=== PATIENT | female | born 1965 | race Caucasian/White ===

== ENCOUNTER 2025-06-22 18:14 | Emergency (ER) | payer OTHER, SELFPAY ==
--- OUTSIDE RECORDS SUMMARY | 2020-09-14 09:00 | XMS_ITS | Continuity of Care Document ---
Author Organization [facility] ([place], [place]) Address [address] [place] [address] Phone Care Team Providers Care Computer Network Engineer Name Role Phone Josephine Carias DMD Unavailable Unavailable Allergies, Adverse Reactions, Alerts Substance Reaction Status Criticality RAMO Inhibitors Active No Informatio n codeine Unknown Active No Information Medications Medication Instructions Dosage Effective Dates (start - stop) Status Comments metformin 1,000 mg tablet take 1 tablet by oral route 2 times every day with morning and evening meals 1000 MG - Active Lipitor 10 mg tablet take 1 tablet by oral route every day 10 MG - Active amoxicillin 500 mg tablet take 1 tablet by oral route every 6 hours 500 MG - No Longer Active Procedures Procedure Date Oral Hygiene Instruction Resin Composite 2s; Posterior 1 Nutrit Couns For Control Of [place] Dis Aug Limited Oral Eval Intraoral-periapical 1st Film 1 Tigcwdsro-kkdayvzaxq-sosi Additional Aug Extract; Erupted Th/exposted Rt 020 Oral Hygiene Instruction Prophylaxis Adult Oral Hygiene Instruction Panoramic Film Intraoral-periapical 1st Film 0 Dhdbpjlxi-julqqxfxeg-nrvq Additional Aug Klybqxzgl-qyzpaxrzyw-czwo Additional Aug Xaybrbkgb-fntvnrkecf-bkbv Additional Aug Rjgkmxxaz-spgjphwptk-chmg Additional Aug Foqfkiyyb-rgxkaexdqv-agcn Additional Aug Ltchlntme-ocanfmtvpf-jetg Additional Aug Comp Oral Eval New/estab Patient 2019 Advance Directives Directive Yes / No Effective Date File Name No Information Encounters Encounter Description Practice Location Reason(s) For Visit Diagnoses Date Provider Providers Copied on Encounter [facility] ([place], [place]), [address] [place] [address], [id number], tel:[phone] Dental Clinic Encounter for screening for dental disorders Jv Burton. [address] [place] [address], [id number], [place]. tel:[phone] [facility] ([place], [place]), [address] [place] [address], [id number], [place] tel:[phone] Dental Clinic dl (chief complaint)d l (chief complaint) Encounter for screening for dental disorders Rafa Burks. [address] [place] [address], [id number], . tel:[phone] [facility] ([place], [place]), [address] [place] [address], [id number], [place] tel:[phone] Dental Clinic Encounter for screening for dental disorders Jv Burton. [address] [place] [address], [id number], [place]. tel:[phone] [facility] ([place], [place]), [address] [place] [address], [id number], tel:[phone] Dental Clinic Encounter for screening for dental disorder Saul Morin. [address] [place] [address], [id number], [place]. tel:[phone] [facility] ([place], [place]), [address] [place] [address], [id number], [place] tel:[phone] Dental Clinic Encounter for screening for dental disorder Saul Morin. [address] [place] [address], [id number], . tel:[phone] Family History Family Member Type Diagnosis Age At Onset Father Problem (finding) Diabetes mellitus Mother Problem (finding) Leukemia Father Problem (finding) Alive and well Payers Payer name Insurance type Covered democrat ID Johnathon ortiz(s) [place] Medicaid [facility] [id number] Social History Type Description Quantity Date Captured Comments Alcohol Use Details Unknown Caffeine Use Details Unknown Tobacco Use Status Light cigarette smok er (1-9 cigs/day) Smoking Status Light tobacco smoker Sex Female Sexual Orientation Straight or heterosexual Gender Identity Female Vital Signs Date / Time: Height Weight BMI Pulse Rate Blood Pressure Temperature Respiratory Rate Body Surface Area Head Circumference Head Circ. Percentile Wt./Alek. Percentile BMI percentile Pulse Ox Inhaled Ox 2:28 PM 91 /min 105/52 mm[Hg] 98.20 F Chief Complaint And Reason For Visit No Information Reason For Referral Reason For Referral No Information Plan Of Treatment Date Type Action Status Goal Tobacco cessation counseling completed History Of Present Illness Encounter Date Complaint History Of Prese nt Illness dl dl dl Functional Status Date Functional Assessmen t No Information Instructions Date Instruction Additional Infor mation No Information Assessments Type Assessment Date assessment Encounter for screening for dent al disorders Patient Care Teams Name Effective Dates (start - stop) Status Members No Information
[2025-06-22 18:39] VITALS: BP 130/79; PULSE 104; TEMP 36.7; O2SAT 97; BMI 32.6
--- NOTE | 2025-06-22 19:31 | CT_ITS ---
The [address] [address] Patient Name: HAO OLIVERA MRN: [id number] date: 1965 Sex: F Assigned Patient Location: ED.MAIN Current Patient Location: ED.MAIN Accession/Order Number: [id number] Exam Date: 06/22/2025 19:44 Report Date: 06/22/2025 20:37 At the request of: CODI PHELAN MD Procedure: CT hip LT wo con CT lumbar spine without contrast TECHNIQUE: The CT exam was performed using one or more the following dose reduction techniques: Automated exposure control, adjustment of the MA and/or Kv according to patient size, or use of the iterative reconstruction technique. COMPARISON: None HISTORY: Left hip and back pain. 3 days duration. Adequate lumbar lordosis. No scoliosis. No acute displaced fracture. Mild spondylosis with endplate spurring. Multilevel facet degeneration. Malrotation right kidney. Left L5 transitional vertebra. CT/CT lumbar spine wo con IMPRESSION: Mild lumbar degenerative changes CT left hip without contrast routine technique Adequate bony alignment without acute displaced fracture. Marginal spurring. Adequate joint space. Articular collapse. No AVN. Greater trochanter spurring. No soft tissue abnormality. IMPRESSION: Mild degenerative changes. Impression dictated by: Tim Penn M.D. 06/22/2025 8:37 PM Dictation Location: [employer] Electronically authenticated by: [id number] Y Date: 06/22/2025 20:37
--- NOTE | 2025-06-22 19:31 | CT_ITS ---
The [address] [address] Patient Name: HAO OLIVERA MRN: [id number] date: 1965 Sex: F Assigned Patient Location: ED.MAIN Current Patient Location: ED.MAIN Accession/Order Number: [id number] Exam Date: 06/22/2025 19:44 Report Date: 06/22/2025 20:37 At the request of: CODI PHELAN MD Procedure: CT hip LT wo con CT lumbar spine without contrast TECHNIQUE: The CT exam was performed using one or more the following dose reduction techniques: Automated exposure control, adjustment of the MA and/or Kv according to patient size, or use of the iterative reconstruction technique. COMPARISON: None HISTORY: Left hip and back pain. 3 days duration. Adequate lumbar lordosis. No scoliosis. No acute displaced fracture. Mild spondylosis with endplate spurring. Multilevel facet degeneration. Malrotation right kidney. Left L5 transitional vertebra. CT/CT hip LT wo con IMPRESSION: Mild lumbar degenerative changes CT left hip without contrast routine technique Adequate bony alignment without acute displaced fracture. Marginal spurring. Adequate joint space. Articular collapse. No AVN. Greater trochanter spurring. No soft tissue abnormality. IMPRESSION: Mild degenerative changes. Impression dictated by: Tim Penn M.D. 06/22/2025 8:37 PM Dictation Location: [employer] Electronically authenticated by: [id number] Y Date: 06/22/2025 20:37
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
[2025-06-22 19:39] VITALS: BP 102/71; PULSE 97; O2SAT 93
--- OUTSIDE RECORDS SUMMARY | 2025-06-22 19:44 | XMS_ITS | Clinical Summary ---
Author Organization [facility] Address [address] [place] [address], [address] [place] [address] Care Team Providers Care Director Of Assisted Living Name Role Phone Tyson Justice MD Primary Care Provider [phone] Social History Tobacco UseTypesPacks/DayYears UsedDateSmoking Tobacco: Never Assessed CommentsUnknownSex and Gender InformationValueDate RecordedSex Assigned at Not on fileLegal JgfCtcmso55/10/2013 7:46 PM ESTGender IdentityNot on fileSexual OrientationNot on file Plan of Treatment Not on file Care Teams Team MemberRelationshipSpecialtyStart DateEnd Date Tyson Justice MD [address] [place] [address] [place], [place] [facility]04/12/12
--- OUTSIDE RECORDS SUMMARY | 2025-06-22 19:44 | XMS_ITS | Clinical Summary ---
Author Organization [facility] Address [address] [place] [address] Care Team Providers Care Catering Administrative Assistant Name Role Phone Yasmeen Ponce MD Primary Care Provider [phone] Social History Tobacco UseTypesPacks/DayYears UsedDateSmoking Tobacco: Never Assessed CommentsUnknownSex and Gender InformationValueDate RecordedSex Assigned at Not on fileLegal ByuFotzgi22/08/2017 9:49 PM EDTGender LlqktuenNmwfsw33/21/2019 7:59 AM EDTSexual ZrrpqnvekhfPneacbey15/21/2019 7:59 AM EDT Plan of Treatment Health MaintenanceDue DateLast DoneCommentsCT Wamoplystonk1966Colonoscopy 1966Colorectal Cancer Screening/Wxyuzywpbb1966Fecal DNA1966 Fecal occult blood test (FOBT,FIT)1966MMR Vaccines (1 of 1 - Standard series)1967Wellness Visit1969Diabetic Eye Exam1976Diabetic Foot Exam1976Urine (micro)albumin/creatinine ratio - Vnpnheon38/15/1976 eGFR ??? Mxscnmmo07/15/1976Depression Screening/Follow-Up (PHQ-2/9)1978HIV Jjiwbnvwt24/15/1981Hepatitis C Icwhppnql26/15/1984Hepatitis B Vaccines (1 of 3 - 19+ 3-dose series)1985Pneumococcal Vaccine: 50+ Years (1 of 2 - PCV) 1985Tetanus/Diphtheria/Pertussis (1 - Tdap)1985Flexible nxjeuoysbzmeh77/15/2016RSV Vaccines (1 - Risk 50-74 years 1-dose series) 2016Zoster Vaccines (1 of 2)2016A1C502/05/2025, 09/12/2024, 06/13/2024, Additional history existsCOVID-19 Vaccine ( season) 2025Influenza Vaccine (#1)04/03/20252476Oxwaiyqaj26/07/88663109/09/2024HIB VaccinesAged OutNo longer eligible based on patient's age to complete this topic HPV VaccinesAged OutNo longer eligible based on patient's age to complete this topicHepatitis A VaccinesAged OutNo longer eligible based on patient's age to complete this topicIPV VaccinesAged OutNo longer eligible based on patient's age to complete this topicMeningococcal ACWY VaccineAged OutNo longer eligible based on patient's age to complete this topicMeningococcal B VaccineAged OutNo longer eligible based on patient's age to complete this topicRotavirus VaccinesAged Out No longer eligible based on patient's age to complete this topic Insurance * Guarantor: Loulou Lizarraga TypeRelation to PatientDate of BirthPhone Billing GegrjtyLclionKlxd1965 [address] [place] [address] Care Teams Team MemberRelationshipSpecialtyStart DateEnd Yasmeen Ponce MD [address] [place] [address] PCP - GeneralFamily Medicine10/21/18
--- OUTSIDE RECORDS SUMMARY | 2025-06-22 19:44 | XMS_ITS | Clinical Summary ---
Author Organization [facility] Address [address] [place] [address] Care Team Providers Care Grove Worker Name Role Phone Sivakumar Min MD Primary Care Provider [phone] Allergies Active AllergyReactionsCriticalityNoted DateCommentsAce InhibitorsUnknown 07/16/20230975WpjlfqeMqyxjjg26/28/2008 Other Reaction(s): rash, sickness Medications MedicationSigDispense QuantityRefillsLast FilledStart DateEnd DateStatus apixaban (Eliquis) 5 MG tablet Take 5 mg by mouth in the morning and 5 mg in the evening.07/16/2023ctive atorvastatin (Lipitor) 20 MG tablet Take 20 mg by mouth in the morning.07/16/2023ctive metFORMIN XR (Glucophage-XR) 500 MG 24 hr tablet Take 500 mg by mouth in the morning. 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); Onychomycosis; Pain in left toe(s); Pain in right toe(s)04/28/2025amboo flowsheet [facility] [address] [place] [address] Maikol Peterson, DPM FACFAS from Last 3 Months Social History Tobacco UseTypesPacks/DayYears UsedDateSmoking Tobacco: NeverSmokeless Tobacco: Never Tobacco Cessation:Counseling Given: Yes Alcohol UseStandard Drinks/WeekCommentsDefer0 (1 standard drink = 0.6 oz pure alcohol)CommentsUnknownSex and Gender InformationValueDate RecordedSex Assigned at BirthNot on fileLegal TjiYzdxxj19/01/2023 8:34 PM EDTGender Identity Not on fileSexual OrientationNot on file Last Filed Vital Signs Vital SignReadingTime TakenCommentsBlood Jaknvwyb660/8109 10:24 AM EDT Eiclz1760/26/2025 10:24 AM EDTTemperature--Respiratory Rate--Oxygen Saturation-- Inhaled Oxygen Concentration--Vscekt84.7 kg (189 lb)04/28/2025 10:24 AM EDT Rsnvxw873.6 cm (5' 4 )04/28/2025 10:24 AM EDTBody Mass Index32.44004/28/2025 10:24 AM EDT Plan of Treatment DateTypeDepartmentCare Team (Latest Contact Info)Wphhzgijoxy47/05/2025 10:50 AM ESTProcedure Visit [facility] [address] [place] [address] Maikol Peterson, DPM FACFAS [address] [place] [address] Insurance Care Teams Team MemberRelationshipSpecialtyStart DateEnd Date Sivakumar Min MD [address] [place] [address] [facility] Uobveibr09/20/23
--- OUTSIDE RECORDS SUMMARY | 2025-06-22 19:44 | XMS_ITS | Clinical Summary ---
Author Organization [facility] Address [address] [place] [id number] Care Team Providers Care Store Operations Manager Name Role Phone Sivakumar Min DO Primary Care Provider Viola Griffin PA-C Unavailable [phone] Allergies Active AllergyReactionsCriticalityNoted DateCommentsAce InhibitorsCoughMedium 07/16/20236293TdipztzApbybFnhqdb29/28/2008 Medications MedicationSigDispense QuantityRefillsLast FilledStart DateEnd DateStatus OXYGEN, HOME THERAPY, 2 L/min by Nasal Cannula route daily at bedtime. 2L/min Uses LINCAREActive CPAP/BIPAP/OTHER Indications:ERLINDA (obstructive sleep apnea)Type .CPAPSettings into a note to see current settings/supplies/DME information. 1 Each /ctive Additional Information Patient not taking.Reason: Discontinued by Patient, Reported on 09/26/2024 CPAP/BIPAP/OTHER Indications:ERLINDA (obstructive sleep apnea)Type .CPAPSettings into a note to see current settings/supplies/DME information. 1 Each /ctive Additional Information Patient not taking.Reason: Discontinued by Patient, Reported on 09/26/2024 CPAP/BIPAP/OTHER Type .CPAPSettings into a note to see current settings/supplies/DME information. 1 Each /ctive Additional Information Patient not taking.Reason: Discontinued by Patient, Reported on 09/26/2024 Lancets Indications:Uncontrolled type 2 diabetes mellitus with hyperglycemia (HCC), Microalbuminuria due to type 2 diabetes mellitus (HCC),Type 2 diabetes mellitus with diabetic microalbuminuria, without long-term current use of insulin ([facility]) Test Two times a day. Insulin Dep? No E11.9 DM 2 200 Each ctive blood sugar diagnostic (BLOOD GLUCOSE TEST) test strip Indications:Uncontrolled type 2 diabetes mellitus with hyperglycemia (HCC), Microalbuminuria due to type 2 diabetes mellitus (HCC),Type 2 diabetes mellitus with diabetic microalbuminuria, without long-term current use of insulin ([facility]) Test 2 times daily, Insulin Dep? No E11.9 DM 2 200 Strip ctive budesonide-formoterol (SYMBICORT) 80-4.5 mcg/actuation inhaler Indications:Centrilobular emphysema ([facility])Inhale 2 Puffs as instructed two times a day. 10.2 g ctive atorvastatin (LIPITOR) 40 mg tablet Take 1 tablet by mouth once daily. 90 tablet tive losartan (COZAAR) 25 mg tablet Take 1 tablet by mouth once daily. 90 tablet ctive SITagliptin phosphate (JANUVIA) 50 mg tablet Take 1 tablet by mouth once daily. 90 tablet 6Active empagliflozin (JARDIANCE) 10 mg tablet Take 1 tablet by mouth daily with breakfast. 90 tablet ctive metFORMIN ER (GLUCOPHAGE XR) 750 mg 24 hr tablet Take 2 tablets by mouth daily with breakfast. 180 tablet 5Active albuterol HFA (PROVENTIL HFA, VENTOLIN HFA) 90 mcg/actuation inhaler Inhale 2 puffs as instructed every 4 hours as needed for wheezing/shortness of breath. 1 each 5Active metoprolol succinate ER (TOPROL XL) 25 mg 24 hr tablet Indications:Essential hypertensionTake 2 tablets by mouth daily at bedtime. 180 tablet //6Active nystatin (MYCOSTATIN) powder Apply 1 application to affected area four times daily. 60 g 1105Active omeprazole (PRILOSEC) 40 mg capsule Take 1 capsule by mouth every afternoon. 90 capsule 5Active Active Problems ProblemNoted DateDiagnosed DateMicroalbuminuria due to type 2 diabetes mellitus 12/15/2024oronary artery calcification seen on CAT scan09/15/2024Pulmonary uovqxclwg38/13/2025Lung ioudurk2509/15/2024OSA (obstructive sleep apnea)12/16/2023 Abnormal cardiovascular stress test10/12/2023Obesity, Class I, BMI 30-34.9 08/18/2023Mixed /16/2024Type 2 gdpvunhc59/16/2024aroxysmal atrial oztnlgbpvkei73/16/2024SOB (shortness of breath)08/18/2023urrent smoker 08/18/2023Nocturnal zaqrouwyn11/16/2024Throat pain09/30/2007Chronic tonsillitis 09/30/2007Esophageal nnnkvt8509/30/2007Unspecified sinusitis (chronic)09/30/2007 Resolved Problems ProblemNoted DateDiagnosed DateResolved DatePersistent atrial fibrillation Encounters DateTypeDepartmentCare QcnpUzjlfgcpuka21/05/2025 Patient Msg Cardiology [address] [place] [address] Provider, [facility] Urgent Appointment Dfdtswazmmjw42/04/9480Ayalxk93/28/2025 Patient Msg Internal Medicine Jasbir [address] [place], [place] [id number] Sivakumar Min, DO Activate Your Health Journey: A Supportive Approach to Weight Management 03/23/2025Travelfrom Last 3 Months Family History Medical HistoryRelationCommentsDiabetesBrotherDiabetesFatherProstate Cancer FatherLeukemiaMaternal AuntHeartMaternal GrandmotherLung CancerMaternal GrandmotherSkin CancerMaternal GrandmotherLung CancerMaternal Uncle 1throat cancerMaternal Uncle 2LeukemiaMotherlukemniaSkin CancerMotherRelationStatus CommentsBrotherFatherMaternal AuntDeceasedMaternal GrandmotherMaternal Uncle 1 DeceasedMaternal Uncle 2AliveMotherDeceased Social History Tobacco UseTypesPacks/DayYears UsedDateSmoking Tobacco: Every QhkJyncebrvtd801.9 Started: 1984Smokeless Tobacco: Never Tobacco Cessation:Ready to Q uit: Not Asked; Counseling Given: Not Answered Comments:Started smoking at the age of 20. Average 1 ppd. Currently smoke 3- 6 cigarettes daily (updated 09/17/23) Alcohol UseStandard Drinks/WeekCommentsNo0 (1 standard drink = 0.6 oz pure alcohol)[facility] UtilitiesAnswerDate RecordedIn the past 12 months has the electric, gas, oil, or water company threatened to shut off services in your home?No 12/15/2024UDIT-CAnswerDate RecordedQ1: How often do you have a drink containing alcohol?Never12/15/2024Q2: How many drinks containing alcohol do you have on a typical day when you are drinking?Patient does not drink12/15/2024Q3: How often do you have six or more drinks on one occasion?Never12/15/2024Overall Financial Resource Strain (CARDIA)AnswerDate RecordedHow hard is it for you to pay for the very basics like food, housing, medical care, and heating?Patient declined 12/15/2024PHQ-2AnswerDate RecordedPHQ-2 lpqjt290Hunger Vital SignAnswer Date RecordedWithin the past 12 months, you worried that your food would run out before you got the money to buymore.Never true12/15/2024Within the past 12 months, the food you bought just didn't last and you didn't have money to get more.Never true12/15/2024PRAPARE - TransportationAnswerDate RecordedIn the past 12 months, has lack of transportation kept you from medical appointments or from getting medications?No12/15/2024In the past 12 months, has lack of transportation kept you from meetings, work, or from getting things needed for daily living?No12/15/2024rea Deprivation IndexAnswerDate RecordedNational Score (1-100), lower number is lower ulep595110/27/2023State Score (1-10), lower number is lower diex458ata from: https://www.neighborhoodatlas.medicine.[facility].edu/. Last address used for [address]/27/2023CommentsNoSex and Gender Information ValueDate RecordedSex Assigned at BirthNot on fileLegal WbmIowipd50/02/2012 8:12 AM ESTGender IdentityNot on fileSexual OrientationNot on file Last Filed Vital Signs Vital SignReadingTime TakenCommentsBlood Cxjeimzr986/8801/26/2025 11:32 AM EDT Gemis40571/26/2025 11:17 AM BESTtkiztbmtkg95.8 ??C (98.3 ??F)11/02/2024 3:55 PM EDTRespiratory Ozxv8647 10:55 AM ESTOxygen Hsktcifvfh23%01/26/2025 11:17 AM EDTInhaled Oxygen Concentration--Dhtyfv68 kg (180 lb 12.4 oz)01/26/2025 11:17 AM ZXAJiisax213.5 cm (5' 2 )01/26/2025 11:17 AM EDTBody Mass Index33.06 01/26/2025 11:17 AM EDT Plan of Treatment Health MaintenanceDue DateLast DoneCommentsDilated Retinal Exam1976Anxiety Lbrpxfpoy59/15/1984Depression Uctkrhdka76/15/1984HIV Magpimofw45/15/1984 Hepatitis C Nrpgnrgpu33/15/1984DTaP,Tdap,Td Vaccine (1 - Tdap)1985 Hepatitis B Vaccine (1 of 3 - 19+ 3-dose series)1985Pneumococcal Vaccine: 50+ (1 of 2 - PCV)1985CT Wtveetzkikuh36/15/2011Cologuard (FIT-DNA) 2011Fecal Occult Blood06/17/20113195Lvxtzzvwioqnr58/15/2011Shingrix Vaccine (1 of 2)06/17/20166283Zeqwmrnovok90/12/202309/2Colorectal Cancer Screening 04/14/20237542DgM6E56/07/2025, 09/12/2024, 06/13/2024, Additional history existsCovid-19 Vaccine ( - 2024- season)2025Influenza Vaccine (#1) 2025Urine Albumin:Creatinine Ratio/06/2024, 07/18/2023 Mammogram Ctqfgiccx94/01/2025LDL Slzqogqwzqv26/12/202605/07/2025, 09/12/2024, 06/13/2024, Additional history existsLung Cancer Mvfoeofti39/22/2026 12/22/2024, 09/15/2024, 4Diabetic Foot Exam, 4Annual PCP Team Chronic Disease Visit5Cervical Cancer ScreeningDiscontinued Procedures Procedure NamePriorityDate/TimeAssociated DiagnosisCommentsPT ED PATIENT IGMNNUCQABI05/06/2025 CT LUNG FOLLOWUP WO KFNSDItzoerp40/22/2025 2:13 PM EDT Lung nodules HEMOGLOBIN E0SPezyfzs78/12/2025 12:03 PM EDT Uncontrolled type 2 diabetes mellitus with hyperglycemia (HCC) LIPID PANEL, XRNXJDIZqmjdkq54/12/2025 12:03 PM EDT Uncontrolled type 2 diabetes mellitus with hyperglycemia (HCC) EMILY SCREENING W UUPAItssloy17/07/2025 4:09 PM EST Encounter for screening mammogram for breast cancer ALBUMIN/CREATININE RATIO, OBSQRVstcndq98/11/2024 12:28 PM EST Uncontrolled type 2 diabetes mellitus with hyperglycemia (HCC) from Last 3 Months or Most Recently Relevant to Health Maintenance Results * PT ED PATIENT INFORMATION (05/08/2025)Specimen (Source)Anatomical Location / LateralityCollection Method / VolumeCollection TimeReceived Time05/08/2025 Narrative [facility] - 06/08/2025 Provider PACK your patient SHEREE OLIVERA has not started their Addison program, time has . Addison program: PATIENT SAFETY INSTRUCTIONS FOR HEALTHCARE SETTINGS Authorizing ProviderResult TypeResult StatusNicole Pack CASING IN LINE FEEDER.CNPEMMIFinal Result Performing OrganizationAddressCity/State/ZIP CodePhone Number [facility] * CT LUNG FOLLOWUP WO IVCON (12/22/2024 2:13 PM EDT)Anatomical RegionLaterality ModalityLungComputed TomographySpecimen (Source)Anatomical Location / LateralityCollection Method / VolumeCollection TimeReceived Time12/22/2024 2:13 PM EDT Impressions 12/23/2024 10:32 AM EDT IMPRESSION: LungRADS category: 2 LungRADS modifier: None LungRADS 0 reason: n/a Recommendations: Continue annual screening with LDCT in 12 months. Other actionable findings: Reference: [employer]. Lung CT Screening Reporting and Data System (Lung-RADS). Available at: http://www.acr.org/Quality-Safety/Resources/LungRADS Transcribe Date/Time: Dec 23 2024 ??9:20A Dictated by: GLENN OLVERA MD This examination was interpreted and the report reviewed and electronically signed by: GLENN OLVERA MD on Dec 23 2024 10:30AM ??EST Thank you for allowing us to participate in the care of your patient. Should there be any questions regarding this interpretation, please call [phone]. If you are unable to reach us at the number above, please feel free to contact [facility] at [phone]. Narrative 12/23/2024 10:32 AM EDT * * *Final Report* * * DATE OF EXAM: Dec 22 2024 ??2:13PM ?? L[facility] ?? 0561 ??- ??CT LUNG FOLLOWUP WO IVCON ??/ PROCEDURE REASON: Lung nodules ? * * * * Physician Interpretation * * * * RESULT: EXAMINATION: ??CT LUNG FOLLOWUP WO IVCON CLINICAL HISTORY: ??Lung nodule Technique: ??Spiral CT acquisition of the chest from the thoracic inlet to the upper abdomen without contrast. MQ: ??CTLCS_6 Followup LDCT Patient characteristics: * ??Ulml-dn-Epzvm: ??1965; ??Age at exam: 59 years * ??Gender: ??Female * ??Lung Disease: ??Asymptomatic (no signs or symptoms of lung disease) * ??Number of Pack Years: ??29 * ??Current smoker (=0) or Number of Years since Quit: ??0 * ??Ordering provider and NPI: ??ANIKET CAMPOS [id number] * ??Interpreting radiologist and NPI: ??Tommy [id number] Exam acquisition parameters: * ??Exam Date: ??12/22/2024 2:13 PM * [facility] * ?? * ??CT System Back Shoe Cutter: ??Siemens * ??CT System Model: ?? Definition * ??Tube Current-Time (mA-sec): ??40 * ??Peak Voltage (kV): ?? 120V * ??Scan Time (sec): ??6.4 * ??Scan Volume (z-length, cm): 34.10 * ??Pitch: ??1.0 * ??Slice Thickness (mm): 1.5 * ??CT Dose-Length Product: ??110 mGy*cm * ??CT Dose Index: 3.06mGy * ??CT Dose Reduction Method: ??Automated exposure control (AEC) COMPARISON: ??CT chest dated 09/15/2024 RESULT: Are nodules present? Yes, 6 or more nodules If No, go to IMPRESSION. If yes, proceed with characterization of the FIVE largest nodules. Nodule 1: ??This Solid nodule is located in the Right Upper Lobe on slice number 91 with an average diameter of 5.8 mm (7.7 mm x 3.9 mm). ??Stable Nodule 2: ??This Solid nodule is located in the Right Middle Lobe on slice number 212 with an average diameter of 3.5 mm (5.0 mm x 1.9 mm). Nodule 3: ??This Solid nodule is located in the Right Lower Lobe on slice number 182 with an average diameter of 3.2 mm (3.9 mm x 2.5 mm). Nodule 4: ??This Solid nodule is located in the Right Lower Lobe on slice number 148 with an average diameter of 2.8 mm (3.7 mm x 1.8 mm). Nodule 5: ?? This Solid nodule is located in the Right Upper Lobe on slice number 108 with an average diameter of 2.8 mm (3.2 mm x 2.3 mm). Please ENSURE NODULE NUMBER is the same as in the prior screening evaluation. Other lung nodule comments: ??The right upper lobe nodule measuring 6.3 mm in average diameter which was new on the prior exam has resolved and likely represented focal atelectasis. Other findings: ??The central airways are patent without evidence of endobronchial lesion. ??No acute focal lung consolidation is seen. ??There is no pleural effusion or pneumothorax. ??No enlarged supraclavicular, axillary, mediastinal or hilar lymph nodes are seen. ??The aorta and main pulmonary artery are normal in course and caliber. ??The heart size is normal. ??Mild atherosclerotic calcifications are seen in the aorta. ?? There is no pericardial effusion. ??The thyroid gland is unremarkable. ?? The esophagus is nondilated. ??The soft tissues of the chest wall are unremarkable. ??Mild atherosclerotic calcifications are seen in the abdominal aorta. ??No destructive bone lesion is seen. ??Degenerative changes seen in the thoracic spine. Emphysema: Trivial (<5%), Centrilobular, Upper lobe Coronary Artery Calcifications: Circumflex ??mild; Left Anterior Descending mild; Right Coronary mild Localizer images: No additional findings. Procedure Note Provider, [facility] [place] - 12/23/2024 * * *Final Report* * * DATE OF EXAM: Dec 22 2024 2:13PM [facility] 0561 - CT LUNG FOLLOWUP WO IVCON / PROCEDURE REASON: Lung nodules * * * * Physician Interpretation * * * * RESULT: EXAMINATION: CT LUNG FOLLOWUP WO IVCON CLINICAL HISTORY: Lung nodule Technique: Spiral CT acquisition of the chest from the thoracic inlet to the upper abdomen without contrast. MQ: CTLCS_6 Followup LDCT Patient characteristics: * Cfyn-fx-Neokg: 1965; Age at exam: 59 years * Gender: Female * Lung Disease: Asymptomatic (no signs or symptoms of lung disease) * Number of Pack Years: 29 * Current smoker (=0) or Number of Years since Quit: 0 * Ordering provider and NPI: ANIKET CAMPOS [id number] * Interpreting radiologist and NPI: Tommy [id number] Exam acquisition parameters: * Exam Date: 12/22/2024 2:13 PM * [facility] * * CT System Back Shoe Cutter: Siemens * CT System Model: Definition * Tube Current-Time (mA-sec): 40 * Peak Voltage (kV): 120V * Scan Time (sec): 6.4 * Scan Volume (z-length, cm): 34.10 * Pitch: 1.0 * Slice Thickness (mm): 1.5 * CT Dose-Length Product: 110 mGy*cm * CT Dose Index: 3.06mGy * CT Dose Reduction Method: Automated exposure control (AEC) COMPARISON: CT chest dated 09/15/2024 RESULT: Are nodules present? Yes, 6 or more nodules If No, go to IMPRESSION. If yes, proceed with characterization of the FIVE largest nodules. Nodule 1: This Solid nodule is located in the Right Upper Lobe on slice number 91 with an average diameter of 5.8 mm (7.7 mm x 3.9 mm). Stable Nodule 2: This Solid nodule is located in the Right Middle Lobe on slice number 212 with an average diameter of 3.5 mm (5.0 mm x 1.9 mm). Nodule 3: This Solid nodule is located in the Right Lower Lobe on slice number 182 with an average diameter of 3.2 mm (3.9 mm x 2.5 mm). Nodule 4: This Solid nodule is located in the Right Lower Lobe on slice number 148 with an average diameter of 2.8 mm (3.7 mm x 1.8 mm). Nodule 5: This Solid nodule is located in the Right Upper Lobe on slice number 108 with an average diameter of 2.8 mm (3.2 mm x 2.3 mm). Please ENSURE NODULE NUMBER is the same as in the prior screening evaluation. Other lung nodule comments: The right upper lobe nodule measuring 6.3 mm in average diameter which was new on the prior exam has resolved and likely represented focal atelectasis. Other findings: The central airways are patent without evidence of endobronchial lesion. No acute focal lung consolidation is seen. There is no pleural effusion or pneumothorax. No enlarged supraclavicular, axillary, mediastinal or hilar lymph nodes are seen. The aorta and main pulmonary artery are normal in course and caliber. The heart size is normal. Mild atherosclerotic calcifications are seen in the aorta. There is no pericardial effusion. The thyroid gland is unremarkable. The esophagus is nondilated. The soft tissues of the chest wall are unremarkable. Mild atherosclerotic calcifications are seen in the abdominal aorta. No destructive bone lesion is seen. Degenerative changes seen in the thoracic spine. Emphysema: Trivial (<5%), Centrilobular, Upper lobe Coronary Artery Calcifications: Circumflex mild; Left Anterior Descending mild; Right Coronary mild Localizer images: No additional findings. IMPRESSION IMPRESSION: LungRADS category: 2 LungRADS modifier: None LungRADS 0 reason: n/a Recommendations: Continue annual screening with LDCT in 12 months. Other actionable findings: Reference: [employer]. Lung CT Screening Reporting and Data System (Lung-RADS). Available at: http://www.acr.org/Quality-Safety/Resources/LungRADS Transcribe Date/Time: Dec 23 2024 9:20A Dictated by: GLENN OLVERA MD This examination was interpreted and the report reviewed and electronically signed by: GLENN OLVERA MD on Dec 23 2024 10:30AM EST Thank you for allowing us to participate in the care of your patient. Should there be any questions regarding this interpretation, please call [phone]. If you are unable to reach us at the number above, please feel free to contact [facility] at [phone]. Authorizing ProviderResult TypeResult StatusKristina LalleyCT-PAMAFinal Result * (ABNORMAL) LIPID PANEL BASIC (12/12/2024 12:03 PM EDT)ComponentValueRef Range Test MethodAnalysis TimePerformed AtPathologist SignatureCholesterol, Bgxvz268 (H)<200 mg/dL12/12/2024 12:34 PM EDTAMHERST [facility] LABComment: <200 mg/dL, Desirable 200-239 mg/dL, Borderline high >239 mg/dL, High Nqxfajfqkghi795(H)<150 mg/dL12/12/2024 12:34 PM [facility] LABComment: <150 mg/dL, Normal 150-199 mg/dL, Borderline high 200-499 mg/dL, High >499 mg/dL, Very high HDL Hxfyzkqcdxg76>39 mg/dL12/12/2024 12:34 PM [facility] LABComment: 40-59 mg/dL, Acceptable >59 mg/dL, High: Negative risk factor for coronary heart disease <40 mg/dL, Low: Positive risk factor for coronary heart disease LDL Cholesterol, Gpetegefct755(H)<100 mg/dL12/12/2024 12:34 PM [facility] LABComment: <100 mg/dL, Optimal 100-129 mg/dL, Near optimal/above optimal 130-159 mg/dL, Borderline high 160-189 mg/dL, High >189 mg/dL, Very high Secondary prevention optimal LDL Cholesterol levels are recommended to be <70 mg/dL LDL cholesterol is calculated using the Mckeon-NIH equation. Non HDL Mguumiuioiq727(H)<130 mg/dL12/12/2024 12:34 PM [facility] Comment: <130 mg/dL, Optimal 130-159 mg/dL, Near optimal/above optimal 160-189 mg/dL, Borderline high 190-219 mg/dL, High >219 mg/dL, Very high Secondary prevention optimal non HDL Cholesterol levels are recommended to be <100 mg/dL VLDL Xnecepljazo98(H)<30 mg/dL12/12/2024 12:34 PM [facility] LABTC:HDL Ratio 5.85(H)<5.10012/12/2024 12:34 PM [facility] LABLDL:HDL Ratio4.15(H)<2.54 12/12/2024 12:34 PM [facility] LABComment: Reference: 1. National Cholesterol Education Program ATP III Guideline At-A-Glance Quick Desk Reference: National Heart, Lung, and Blood [place]. National Institutes of Health. 2001: NIH Publication No. 01-3305. 2. An International Atherosclerosis Society position paper: global recommendations for the management of dyslipidemia: executive summary, Atherosclerosis. 2014: 232(2):410-413. Fasting BoadIRezl42/12/2025 12:34 PM [facility] LABSpecimen (Source) Anatomical Location / LateralityCollection Method / VolumeCollection Time Received TimeBloodBLOOD SPECIMEN / UnknownVenipuncture / Wprblof4712/12/2024 12:03 PM EDT12/12/2024 12:03 PM EDT Narrative Authorizing ProviderResult TypeResult StatusSivakumar Min DOLABORATORY Final ResultPerforming OrganizationAddressCity/State/ZIP CodePhone Number [facility] [address] [place] [address], * (ABNORMAL) HEMOGLOBIN A1C (12/12/2024 12:03 PM EDT)ComponentValueRef RangeTest MethodAnalysis TimePerformed AtPathologist SignatureHemoglobin A1C9.1(H)4.3 - 5.6 %12/12/2024 12:19 PM [facility] LABComment:[place] [employer] Association guidelines indicate that patients with HgbA1c in the range 5.7- 6.4% are at increased risk for development of diabetes, and intervention by lifestyle modification may be beneficial. HgbA1c greater or equal to 6.5% is considered diagnostic of diabetes.Estimated Average Akesdud478hb/dL12/12/2024 12:19 PM [facility] LABComment:eAG: (Estimated average glucose) is a calculated value from HgbA1c and is mill representative of the average blood glucose level in the last 2-3 month period.Specimen (Source)Anatomical Location / LateralityCollection Method / VolumeCollection TimeReceived Time BloodBLOOD SPECIMEN / UnknownVenipuncture / Crbikzd5412/12/2024 12:03 PM EDT 12/12/2024 12:03 PM EDT Narrative Authorizing ProviderResult TypeResult StatusSivakumar Min DOLABORATORY Final ResultPerforming OrganizationAddressCity/State/ZIP CodePhone Number [facility] [address] [place] [address], * EMILY SCREENING W JOHN (09/09/2024 4:09 PM EST)Anatomical RegionLaterality ModalityBreastOtherSpecimen (Source)Anatomical Location / LateralityCollection Method / VolumeCollection TimeReceived Time09/09/2024 4:09 PM EST Impressions 09/11/2024 1:57 PM EST IMPRESSION: There is no mammographic evidence of malignancy in either breast. Routine screening mammogram is recommended. Annual mammogram will be due in 1 year. BI-RADS Category 1: Negative RISK: ??Based on the Tyrer-Cuzick (TC) risk assessment model, this patient has a 5.0% ??lifetime risk of developing breast cancer, meaning they are at average risk for developing breast cancer. However, this is only an estimate based on available history provided on the patient's questionnaire. We encourage all patients to talk with their providers about these results, further recommendations for managing breast health, and appropriate supplemental screening options if the patient has dense breast tissue. Interpreting Radiologist: Du Sousa M.D. Electronically signed on: 09/11/2024 Used Car Make Ready Mechanic: SAMANTHA Transcribe Date/Time: Sep ??2024 ??3:43P Dictated by: DU SOUSA MD This examination was interpreted and the report reviewed and electronically signed by: DU SOUSA MD on Sep ??2024 ??1:51PM ??EST Narrative 09/11/2024 1:57 PM EST * * *Final Report* * * DATE OF EXAM: Sep ??2024 ??4:09PM ?? LNW ?? 0582 ??- ??EMILY SCREENING W JOHN ??/ PROCEDURE REASON: Encounter for screening mammogram for breast cancer ? * * * * Physician Interpretation * * * * RESULT: [place] [address] #[id number] - EMILY SCREENING W JOHN HISTORY: 59 year-old patient seen for screening. No current complaints. Patient states no personal history of breast cancer. Patient states no personal history of ovarian cancer. COMPARISON STUDIES: No prior imaging studies are available for comparison. MAMMOGRAM TECHNIQUE: The study was acquired using full field digital technology and interpreted from soft copy. Digital Breast Tomosynthesis (DBT) images were obtained and used to assist in the interpretation of this examination. MAMMOGRAM FINDINGS: The breasts are almost entirely fatty. No suspicious masses, calcifications or other abnormalities are seen in either breast. Procedure Note Provider, [facility] - 09/11/2024 * * *Final Report* * * DATE OF EXAM: Sep 09 2024 4:09PM [id number] - EMILY SCREENING W JOHN / PROCEDURE REASON: Encounter for screening mammogram for breast cancer * * * * Physician Interpretation * * * * RESULT: [address] [place] [address] #[id number] - EMILY SCREENING W JOHN HISTORY: 59 year-old patient seen for screening. No current complaints. Patient states no personal history of breast cancer. Patient states no personal history of ovarian cancer. COMPARISON STUDIES: No prior imaging studies are available for comparison. MAMMOGRAM TECHNIQUE: The study was acquired using full field digital technology and interpreted from soft copy. Digital Breast Tomosynthesis (DBT) images were obtained and used to assist in the interpretation of this examination. MAMMOGRAM FINDINGS: The breasts are almost entirely fatty. No suspicious masses, calcifications or other abnormalities are seen in either breast. IMPRESSION IMPRESSION: There is no mammographic evidence of malignancy in either breast. Routine screening mammogram is recommended. Annual mammogram will be due in 1 year. BI-RADS Category 1: Negative RISK: Based on the Tyrer-Cuzick (TC) risk assessment model, this patient has a 5.0% lifetime risk of developing breast cancer, meaning they are at average risk for developing breast cancer. However, this is only an estimate based on available history provided on the patient's questionnaire. We encourage all patients to talk with their providers about these results, further recommendations for managing breast health, and appropriate supplemental screening options if the patient has dense breast tissue. Interpreting Radiologist: Du Sousa M.D. Electronically signed on: 09/11/2024 [employer] Mechanic: SAMANTHA Transcribe Date/Time: Sep 09 2024 3:43P Dictated by: DU SOUSA MD This examination was interpreted and the report reviewed and electronically signed by: DU SOUSA MD on Sep 11 2024 1:51PM EST Authorizing ProviderResult TypeResult StatusSivakumar YANG Final Result * (ABNORMAL) ALBUMIN/CREATININE RATIO, URINE (06/13/2024 12:28 PM EST)Component ValueRef RangeTest MethodAnalysis TimePerformed AtPathologist Signature Creatinine, Ur Random (UCRR)52.020.0 - 300.0 mg/dL06/13/2024 12:49 PM EST [facility]Albumin, Urine Espoyo02.0(H)0.0 - 20.0 mg/L108/13/2023 12:49 PM ESTAMHERST [facility] LABAlbumin/Creat Ratio79(H)<30 mg/g108/13/2023 12:49 PM EST [facility] LABComment: Adult Male and Female Nephrotic Criteria: <30 mg/g is considered normal to mildly increased 30-300 mg/g is considered moderately increased >300 mg/g is considered severely increased KDIGO. (2013). KDIGO 2012 Clinical Practice Guideline for the Evaluation and Management of Chronic Kidney Disease. Official Journal of the International Society of Nephrology, 3(1), 1-150. Specimen (Source)Anatomical Location / LateralityCollection Method / Volume Collection TimeReceived TimeUrineURINE SPECIMEN / Euwkqpt9606/13/2024 12:28 PM EST 06/13/2024 12:30 PM EST Narrative Authorizing ProviderResult TypeResult StatusSivakumar Min DOLABORATORY Final ResultPerforming OrganizationAddressCity/State/ZIP CodePhone Number [facility] from Last 3 Months or Most Recently Relevant to Health Maintenance Insurance Care Teams Team MemberRelationshipSpecialtyStart DateEnd Date Sivakumar Min DO [address] [place] [address] [facility] Qsswqkbb12/14/23 Viola Griffin PA-C [address] [place] [address] [facility] Tgcebfwb47/8/24
[2025-06-22] MEDS: ONDANSETRON 4 MG RAPDIS TABLET SL (20:26)
[2025-06-22] MEDS: OXYCODONE HCL/ACETAMINOPHEN 5MG/325MG 1 TAB PO ×2 (20:26→21:20)
[2025-06-22 21:18] VITALS: BP 96/73; PULSE 94; TEMP 37; O2SAT 98
--- NOTE | 2025-06-22 21:23 | PC.NURSE ---
i gave this patient verbal and written discharge orders along with 1Rx and take home medication. this patient voices yes to understanding these. at time of discharge this patient voices no concerns, needs and shows no signs of distress. i informed this patient while taking these pain medication do not operate any automobiles, machinery, and go to work, and alves must take a stool softener
== END 2025-06-22 21:22 | disposition home or self-care (01) ==
PROVIDERS: Emergency Provider Emergency Medicine
DX: S76.812A Strain of other specified muscles, fascia and tendons at thigh level, left thigh, initial encounter (principal); S39.011A Strain of muscle, fascia and tendon of abdomen, initial encounter; X50.9XXA Other and unspecified overexertion or strenuous movements or postures, initial encounter; I48.91 Unspecified atrial fibrillation
CPT/HCPCS: 72131; 73700; 76376; 99284; Q0162